=== PATIENT | female | born 1965 | race Caucasian/White ===

== ENCOUNTER → 2017-04-15 | Outpatient (CLI) | payer BC ==
--- NOTE | 2017-04-16 08:35 | RADIOLOGY IMAGING REPORT ---
FACILITY: [facility] - [place] PATIENT NAME: RAGHAVENDRA FONTENOT : [id number] MR: [id number] V: [id number] EXAM DATE: [id number] ORDERING PHYSICIAN: DAVIDE WARD TECHNOLOGIST: Amalia Garnica PROCEDURE:LEFT DIGITAL DIAGNOSTIC MAMMOGRAM COMPARISON:Prior mammograms dated 02/17/17. INDICATIONS:FURTHER EVALUATION FINDINGS: The patient returns for a medial lateral view of the left breast and spot magnification views in the left MLO and left CC projections. Loosely grouped round calcifications are seen scattered throughout the upper lateral portion of the left breast. There is no evidence of branching or pleomorphism. A six month followup left mammogram is recommended unless clinical findings warrant more immediate attention. DIAGNOSTIC CATEGORY 3--PROBABLY BENIGN FINDING. RECOMMENDATIONS: SIX MONTH FOLLOW-UP DIAGNOSTIC MAMMOGRAM: LEFT BREAST. IMPRESSION: Bi-RADS 3: A six month followup left mammogram is recommended unless clinical findings warrant more immediate attention. Dictated by: Courtney Agarwal M.D. on 04/15/2017 at 15:47 Transcribed by: MARIE on 04/15/2017 at 17:40 Approved by: Courtney Agarwal M.D. on 04/16/2017 at 8:34 [facility]
== END ==
LOC: MAMO 00:38
PROVIDERS: ATTEND Nurse Practitioner Family
DX: R92.1 Mammographic calcification found on diagnostic imaging of breast (principal)
CPT/HCPCS: 77065

== ENCOUNTER → 2017-11-30 | Outpatient (CLI) | payer BC ==
--- NOTE | 2017-12-01 11:29 | RADIOLOGY IMAGING REPORT ---
[place]AC[place] [facility] [place]IENT NAME: RAGHAVENDRA FONTENOT : [id number] MR: [id number] V: [id number] EXAM DATE: [id number] ORDERING PHYSICIAN: DAVIDE WARD TECHNOLOGIST: Amalia Garnica PROCEDURE:LEFT DIGITAL DIAGNOSTIC MAMMOGRAM WITH CAD ASSISTED INTERPRETATION & 3D TOMOSYNTHESIS COMPARISON:Prior mammograms 04/15/17, 02/17/17. INDICATIONS:6 MO F/U FINDINGS: The patient received a full field Left medial lateral view and Spot magnification views in the Left CC & MLO projections. The loosely grouped calcifications scattered throughout the upper outer portion of the Left breast are again seen. These appear to be stable. There is no branching or pleomorphism. Of note the patient is due for her screening Right mammogram end of January 2018. She elected only to have the Left breast imaged at this time. DIAGNOSTIC CATEGORY 3--PROBABLY BENIGN FINDING. RECOMMENDATIONS: SIX MONTH FOLLOW-UP DIAGNOSTIC MAMMOGRAM: LEFT BREAST. IMPRESSION: BIRADS 3: Probably benign finding. The patient will be due for her screening Right mammogram end of January 2018 as described above. A 6 month follow-up Left mammogram is also recommended to document stability of the calcifications sense comparison is made to the prior 3D breast Tomosynthesis of 02/17/2017. Comparison was made to the prior mammograms of 02/24/08 & 02/14/08 however due to the difference in imaging technology direct comparison was very limited. Dictated by: Courtney Agarwal M.D. on 12/01/2017 at 8:40 Transcribed by: CARRI on 12/01/2017 at 9:48 Approved by: Courtney Agarwal M.D. on 12/01/2017 at 11:27 [facility]
== END ==
LOC: MAMO 11-27 16:12
PROVIDERS: ATTEND Nurse Practitioner Family
DX: R92.1 Mammographic calcification found on diagnostic imaging of breast (principal)
CPT/HCPCS: 77061; 77065